=== PATIENT | female | born 1960 | race Caucasian/White ===

== ENCOUNTER → 2021-07-05 | Outpatient (CLI) | payer OTHER ==
--- NOTE | 2021-07-05 07:45 | MR ---
EXAMINATION TYPE: MR hip RT wo con DATE OF EXAM: 07/05/2021 COMPARISON: None. HISTORY: RT hip pain, bursitis, osteoporosis Standard multiplanar, multisequence MRI departmental protocol Multiplanar, multisequence images of the pelvis focusing on right hip were acquired without contrast. FINDINGS: Hip joints appear symmetric and within normal limits. There is no significant spurring or s ubchondral cystic change. No asymmetric joint effusion. Femoral head shapes are maintained bilaterall y. No suspicious edema. No serpiginous low T1 signal to suggest avascular necrosis. No significant fl uid signal over the greater or lesser trochanters bilaterally. Muscle bulk is symmetric and within no rmal limits. No groin hernia or adenopathy is identified. No suspicious bowel dilatation. Few diverticula in the sigmoid colon are present. No concerning free pelvic fluid collection. IMPRESSION: No significant abnormality is seen.
== END | disposition home or self-care (01) ==
LOC: RADMRIMAIN 06:37
PROVIDERS: ATTEND Family Medicine
DX: M25.551 Pain in right hip (principal); M70.61 Trochanteric bursitis, right hip; M81.0 Age-related osteoporosis without current pathological fracture